=== PATIENT | male | born 1950 | race Caucasian/White ===

== ENCOUNTER → 2017-07-09 | Outpatient (CLI) | payer OTHER | END | disposition home or self-care (01) | LOC: C.PATHSPEC 17:04 | PROVIDERS: ATTEND Nurse Practitioner Family | DX: N30.21 Other chronic cystitis with hematuria (principal) ==

== ENCOUNTER → 2018-03-06 | Outpatient (CLI) | payer OTHER | END | disposition home or self-care (01) | LOC: C.PATHSPEC 16:54 | PROVIDERS: ATTEND Urology | DX: R31.0 Gross hematuria (principal) ==

== ENCOUNTER 2021-06-07 05:42 | Observation (INO) ==
--- NOTE | 2021-05-31 16:25 | PAT Medication Instructions ---
Medication Instructions Date of Service May 31, 2021 Home Medications albuterol sulfate 90 mcg/actuation aerosol inhaler 2 puffs INH Q6H PRN aspirin 81 mg tablet 81 mg PO QAM atorvastatin 20 mg tablet 20 mg PO HS dutasteride 0.5 mg capsule 0.5 mg PO QAM 0 glipizide 2.5 mg tablet, extended release 24 hr 2.5 mg PO QAM metformin 500 mg tablet 500 mg PO QAM sitagliptin 100 mg tablet 100 mg PO QAM tamsulosin 0.4 mg capsule 0.4 mg PO QAM cyanocobalamin (vitamin B-12) 1,000 mcg PO QAM folic acid 1 mg PO QAM ropinirole 0.5 mg PO HS trazodone 150 mg PO HS sildenafil [Viagra] 50 mg PO DAILY PRN ferrous sulfate 325 mg (65 mg iron) tablet,delayed release 325 mg PO DAILY ASK your prescriber and surgeon aspirin 81 mg tablet 81 mg PO QAM STOP taking 24 hours before surgery sildenafil [Viagra] 50 mg PO DAILY PRN DO NOT take the morning of surgery glipizide 2.5 mg tablet, extended release 24 hr 2.5 mg PO QAM metformin 500 mg tablet 500 mg PO QAM sitagliptin 100 mg tablet 100 mg PO QAM cyanocobalamin (vitamin B-12) 1,000 mcg PO QAM folic acid 1 mg PO QAM ferrous sulfate 325 mg (65 mg iron) tablet,delayed release 325 mg PO DAILY Take morning of surgery With a small sip of water, OTHERWISE NOTHING TO EAT OR DRINK AFTER MIDNIGHT: albuterol sulfate 90 mcg/actuation aerosol inhaler 2 puffs INH Q6H PRN (use if needed; please bring with you to hospital day of surgery if possible) dutasteride 0.5 mg capsule 0.5 mg PO QAM tamsulosin 0.4 mg capsule 0.4 mg PO QAM Take evening before surgery albuterol sulfate 90 mcg/actuation aerosol inhaler 2 puffs INH Q6H PRN (if needed) atorvastatin 20 mg tablet 20 mg PO HS ropinirole 0.5 mg PO HS trazodone 150 mg PO HS Other Notes If you have any questions please call us at [phone] or [phone] or [phone] or [phone]
--- NOTE | 2021-06-02 09:45 | Anesthesiology Consultation ---
Date of Service June 02, 2021 Assessment & Plan (1) Encounter for pre-operative examination: Chart Review Chart Review: Acceptable Risk for Surgery (pending preop Covid testing results ) and Patient seen in Pre Admission Testing - Check BSG AM DOS Per [facility] appt on 06/02/21, patient denies any recent travel. No known Covid positive contacts or Covid related symptoms. No known Covid infection in the past 90 days. Preop Covid testing done at [facility] appt 06/02/21= results pending. Educated on importance of self quarantining, social distancing and wearing mask in public both for the patient after Covid testing done. Pt is NOT vaccinated for Covid. Recently admitted [facility] (discharged 05/31/21 per patient) = secondary UTI - treated with abxs. Feeling better. Pt denies sepsis. Teaching & Discussion Pre-Anesthesia Teaching/Discussion Notes: Instructed NPO after midnight before surgery,except medications with 15 cc of water. Medication instructions provided according to the [facility] guidelines. History Surgery Operation Date: 06/07/21 11:10 Proposed Procedures p Transurethral Resection Prostate - Héctor Ludwig MD Height/Weight Height: 5 ft 7.5 in Weight: 74.3 kg Allergies Allergy/AdvReac Type Severity Reaction Status Date / Time lisinopril Allergy Unknown pt does Verified 05/20/21 10:27 not know reaction Tetanus Vaccines and Toxoid Allergy Unknown unsure of Verified 05/20/21 10:27 reaction Medications Home Medications Medication Instructions Recorded Confirmed Last Taken albuterol sulfate 90 mcg/actuation 2 puffs INH Q6H PRN 04/14/20 05/20/21 03/01/21 aerosol inhaler aspirin 81 mg tablet 81 mg PO QAM 04/14/20 05/20/21 02/24/21 atorvastatin 20 mg tablet 20 mg PO HS 04/14/20 05/20/21 03/02/21 22:00 dutasteride 0.5 mg capsule 0.5 mg PO QAM 04/14/20 05/20/21 03/02/21 08:00 glipizide 2.5 mg tablet, extended 2.5 mg PO QAM 04/14/20 05/20/21 03/02/21 08:00 release 24 hr metformin 500 mg tablet 500 mg PO QAM 04/14/20 05/20/21 03/02/21 08:00 sitagliptin 100 mg tablet 100 mg PO QAM 04/14/20 05/20/21 03/02/21 08:00 tamsulosin 0.4 mg capsule 0.4 mg PO QAM 04/14/20 05/20/21 03/02/21 08:00 cyanocobalamin (vitamin B-12) 1,000 mcg PO QAM 02/18/21 05/20/21 03/02/21 08:00 folic acid 1 mg PO QAM 02/18/21 05/20/21 03/02/21 08:00 ropinirole 0.5 mg PO HS 02/18/21 05/20/21 03/02/21 22:00 trazodone 150 mg PO HS 02/18/21 05/20/21 03/02/21 22:00 sildenafil [Viagra] 50 mg PO DAILY PRN 03/03/21 03/23/21 Unknown ferrous sulfate 325 mg (65 mg 325 mg PO DAILY 03/23/21 05/20/21 Unknown iron) tablet,delayed release amlodipine [Norvasc] 10 mg PO DAILY 06/02/21 06/02/21 Unknown cefdinir See Rx Instructions .ROUTE .COMPLEX 06/02/21 06/02/21 Unknown lisinopril 5 mg PO DAILY 06/02/21 06/02/21 Unknown pantoprazole 40 mg PO DAILY 06/02/21 06/02/21 Unknown Past Medical History Medical History (Updated 06/02/21 @ 17:27 by Rocio James PA-C) Anemia S/p 4 iron transfusions in the past few months Arthritis Asthma LAST USED INHALER>LAST WEEK BREATHING STABLE BPH (benign prostatic hyperplasia) Diabetes mellitus, type 2 GLUCOSE STABLE Palmer catheter in place History of depression Hyperlipidemia Hypertension Insomnia Restless leg syndrome UTI (urinary tract infection) hx Exercise / Class Metabolic Activity III < 4 Walking/Shop/Light housework (no chest pain or SOB with flat surface ambulation ) Past Family History Family History Son Hypertension Other No family history of adverse response to anesthesia Past Surgical History Surgical History H/O hemorrhoidectomy History of colonoscopy History of tooth extraction Past Anesthesia History No Hx of Anesthesia Complications and No Family Hx of Anesthesia Complications History of PONV No Hx of PONV and No Hx of Motion Sickness Social History Smoking Status: Current every day smoker tobacco type: cigarettes Smoking cigarettes per day: 1ppd Do You Dip or Chew Tobacco: No Hx Alcohol Use: No Hx Substance Use: No substance use type: does not use Review of Systems Occ cough- chronic/stable. Mild Patient denies chest pain, shortness of breath, reflux, wheezing, palpitations. No hx of seizures, stroke, [place], apnea/snoring. No hx of blood clots or blood transfusions Physical Exam Vital Signs VITALS BP 145/55 P 69 TEMP 98.2 SP02 97% RESP 16 Constitutional no acute distress ENMT Mouth: no TMJ clicking Thyromental Distance: > or= 3.5 Finger Breadths (3.5) Mallampati Class: II All top teeth missing Bottom side and molars missing Neck + limited neck extension (mild ) Respiratory normal respiratory effort; no respiratory distress Auscultation: lungs clear to auscultation bilaterally and + diminished lung sounds; no wheezes Cardiovascular Rate/Rhythm: regular rate and regular rhythm Heart Sounds: no murmur Vessels: no carotid bruit Musculoskeletal Spine: no pain with cervical ROM Extremities: extremities normal to inspection Psychiatric Orientation: alert Lab Results Anesthesia Preop Results Results Anesthesia Widget: Na 139 mmol/L (136-145) 06/02/21 K 4.8 mmol/L (3.5-5.1) 06/02/21 Cl 107 mmol/L (98-107) 06/02/21 CO2 30 mmol/L (21-32) 06/02/21 BUN 14 mg/dl (7-18) 06/02/21 Creat 1.21 mg/dl (0.6-1.4) 06/02/21 Glucose Level 105 mg/dl (70-99) H 06/02/21 HA1c 6.2 % (4.5-5.6) H 06/02/21 Urine Color Yellow 06/02/21 Urine Appearance Clear (Clear) 06/02/21 Urine pH 6.5 (4.5-7.5) 06/02/21 Urine Specific Steele 1.011 (1.000-1.030) 06/02/21 Urine Protein Negative (Negative) 06/02/21 Urine Glucose (UA) Negative (Negative) 06/02/21 Urine Ketones Negative (Negative) 06/02/21 Urine Blood Negative (Negative) 06/02/21 Urine Nitrite Negative (Negative) 06/02/21 Urine Bilirubin Negative (Negative) 06/02/21 Urine Urobilinogen Negative (Negative) 06/02/21 Urine Leukocyte Esterase Trace (Negative) H 06/02/21 Urine WBC (Auto) 5-10 /hpf (0-5) H 06/02/21 Urine RBC (Auto) 5-10 /hpf (0-4) H 06/02/21 Urine Hyaline Casts (Auto) 1-5 /lpf (0-5) 06/02/21 Urine Epithelial Cells (Auto) 10-20 /lpf (0-5) H 06/02/21 Urine Bacteria (Auto) Negative (Negative) 06/02/21 Testing Laboratory Results 05/28/21= WBC: 8.0 H/H: 11.5/36.2 (chronic anemia per patient) PLATELETS: 284 Electrocardiogram Date: 02/24/21 Findings: + NSR @ (67bpm) Minimal voltage criteria for LVH, may be normal variant. Chest X-Ray Date: 06/02/21 FINDINGS: Cardiomediastinal and hilar silhouettes are unchanged. Mild blunting of the costophrenic angles. Interstitial coarsening without pneumothorax, large pleural effusion or overt pulmonary edema. 11 mm nodule left upper lung density is unchanged. Ill-defined 3.6 cm right suprahilar opacity appears slightly less conspicuous than prior. Mild hyperinflation. Degenerative changes of the shoulders and spine. IMPRESSION: 1. Mild hyperinflation without acute process. 2. 11 mm left upper lung and 3.6 cm right upper lung opacities redemonstrated. Again, findings should be correlated with prior imaging to determine chronicity. A nonemergent follow-up chest CT could also be considered. (Will send CXR to PCP as FYI to follow up on outpatient basis)
[2021-06-07] MEDS ORDERED: CIPROFLOXACIN / D5W 400 MG/200 ML BAG IV SCH (06:00)
[2021-06-07] MEDS ORDERED: LR 15ML/HR IV SCH (06:00)
[2021-06-07] MEDS ORDERED: ONDANSETRON INJ 2 MG/ML 2 ML VIAL IV PRN (07:11)
[2021-06-07] MEDS ORDERED: fentaNYL citrate 100 MCG/2 ML VIAL ONE (07:11)
[2021-06-07] MEDS ORDERED: LIDOCAINE 2% 2 ML VIAL/AMP(20MG/ML) INFIL ONE (07:11)
[2021-06-07] MEDS ORDERED: ONDANSETRON INJ 2 MG/ML 2 ML VIAL ONE (07:11)
[2021-06-07] MEDS ORDERED: fentaNYL citrate 100 MCG/2 ML VIAL IV PRN (07:11)
[2021-06-07] MEDS ORDERED: ATROPINE SULFATE 0.1 MG/ML 10ML SYR IV PRN (07:11)
[2021-06-07] MEDS ORDERED: MIDAZOLAM HCL 1 MG/ML 2ML VIAL ONE (07:11)
[2021-06-07] MEDS ORDERED: PROPOFOL IV EMULSION 10 MG/ML 20 ML VIAL IV ONE (07:11)
--- NOTE | 2021-06-07 07:16 | History & Physical Bridge Note ---
Date of Service June 07, 2021 History & Physical Bridge Note I have examined the patient, reviewed the History & Physical and in the interval since the performance of the History & Physical I have noted the following changes of clinical significance: no changes noted
[2021-06-07] MEDS ORDERED: ALBUTEROL HFA 8 GM INHALER INH PRN (09:37)
[2021-06-07] MEDS ORDERED: ACETAMINOPHEN 325 MG TAB PO PRN (09:37)
[2021-06-07] MEDS ORDERED: traMADol HCL 50 MG TABLET PO PRN ×2 (09:37)
--- NOTE | 2021-06-07 09:44 | Operative Report ---
PG Post Operative Report Pre & Post Diagnosis Operation Date: 06/07/21 07:30 Pre-Op Diagnosis: BPH with Urinary OBS/LUTS Urinary Retention Post-Op Diagnosis: BPH with Urinary OBS/LUTS Urinary Retention I identified the patient and participated in the time-out.: Yes Procedure Operation Date: 06/07/21 07:30 Actual Procedures p Transurethral Resection Prostate(Not Applicable) - Héctor Ludwig MD Surgeon Guido Ludwig MD Dehydrator Operator none Estimated Blood Loss 5 Findings Consistent with Post-Op Diagnosis Specimens Prostate chips Description of Procedure The patient was identified in the preoperative holding area, appropriate informed consents were reviewed and completed and the patient was transferred to the operative suite. Upon arrival, appropriate antibiotics and anesthesia were administered and the patient was placed in dorsal lithotomy position and prepped and draped in sterile fashion. Begin the case to pass a 27 Turkmen resectoscope with 30 degree lens. Inspection revealed a healthy-appearing urethra and enlarged prostate with predominantly lateral lobe hypertrophy but some intravesical intrusion. Inspection of the bladder revealed a heavily trabeculated bladder of minimal capacity. Following my inspection I exchanged the visual obturator for a loop electrode and began by resecting the intravesical portion of the prostate followed by the left lateral wall and the right lateral wall. I concluded my resection by trimming the apical tissues. I irrigated a substantial amount of prostate tissue out of the bladder and passed off the table as a specimen. I obtained meticulous hemostasis utilizing a button electrode and then left the bladder full and withdrew the scope. I placed a 22 Turkmen Palmer catheter without difficulty and the case was concluded. He was extubated and taken to the PACU in stable condition. There were no complications. I attest to the content of the Intraoperative Record and any orders documented therein. Any exceptions are noted below.
--- NOTE | 2021-06-07 09:57 | Anesthesiology Progress Note ---
Date of Service June 07, 2021 Anesthesia Post Procedure Vital Signs Vital Signs: Temp Pulse Pulse Resp BP BP Pulse Ox 06/07/21 09:37 36.3 C L 54 L 16 116/70 06/07/21 09:25 36.8 C 56 L 17 120/56 L 92 06/07/21 09:15 52 L 12 112/56 L 97 06/07/21 09:05 58 L 14 120/56 L 96 06/07/21 08:55 57 L 17 135/59 L 99 06/07/21 08:47 36.9 C 67 17 143/65 H 98 06/07/21 06:06 36.4 C L 67 20 168/67 H 94 Transfer of Care Handoff Completed per policy Notes Mental Status: alert / awake / arousable Patient Amnestic to Procedure: Yes Nausea / Vomiting: adequately controlled Pain: adequately controlled Airway Patency, RR, SpO2: stable & adequate BP & HR: stable & adequate Hydration State: stable & adequate Anesthetic Complications: no major complications apparent
[2021-06-07] MEDS ORDERED: PHARMACY GLYCEMIC MGMT CONSULT PRN (09:58)
[2021-06-07] MEDS ORDERED: GLUCOSE 40% GEL 15 GM TUBE PO PRN (10:00)
[2021-06-07] MEDS ORDERED: GLUCOSE 10 TABS/TUBE PO PRN (10:00)
[2021-06-07] MEDS ORDERED: DEXTROSE 50% 50 ML SYRINGE IV PRN (10:00)
[2021-06-07] MEDS ORDERED: CARBOHYDRATES FOR HYPOGLYCEMIA PO PRN (10:00)
[2021-06-07] MEDS ORDERED: GLUCAGON FOR INJ 1 MG VIAL IM PRN (10:00)
--- NOTE | 2021-06-07 10:04 | Pharmacy Report ---
Pharmacy Glycemic Short Note 2 - Date of Service June 07, 2021 - Glycemic Short BSG Results (Last 24 hours): 06/07/21 06/07/21 06:02 08:50 POC Glucose 110 H 137 H OUTPATIENT ANTIDIABETIC REGIMEN: * Metformin 500 mg PO daily * Glipizide 2.5 mg PO daily * Januvia 100 mg PO daily * HbA1c: 6.2% (06/02/21) ASSESSMENT: * ET is a 70 year old male POD #0 s/p TURP * No perioperative steroids administered * Patient has very well-controlled T2DM with oral medications only * Likely restart oral meds tomorrow morning * BSG elevated at lunchtime (215 mg/dL), but patient ate breakfast just 2 hours prior to that so may be falsely elevated PLAN FOR INPATIENT GLYCEMIC CONTROL: * Hold outpatient oral diabetes medications * Likely restart tomorrow morning * Basal insulin * Lantus scale with dinner to provide 0-15 units based on BSG (see EHR for details) * Bolus insulin * NovoLog per scale ACHS or Q6hrs while NPO * Goal Range: Low 110 mg/dL - High 140 mg/dL * Correction Factor: 25 mg/dL/unit * Nutritional / Prandial insulin per carb ratio of 1 unit per 8 grams CHO consumed PLAN FOR DISCHARGE: * HbA1c of 6.2% suggests excellent outpatient glycemic control * Provided that patient is not experiencing hypoglycemia as an outpatient, suggest continuing current home regimen at discharge
[2021-06-07] MEDS: LACTATED RINGER'S 1,000 ML IV SCH ×2 (10:35→23:24)
[2021-06-07] MEDS: INSULIN ASPART 100 UNITS/ML 3 ML PEN SC SCH ×4 (10:41→21:02)
[2021-06-07] MEDS: lisinopril 5 MG TAB PO SCH (11:30)
[2021-06-07] MEDS: amLODIPine BESYLATE 5 MG TAB PO SCH (11:30)
[2021-06-07] MEDS: PANTOprazole 40 MG TAB PO SCH (11:31)
[2021-06-07] MEDS ORDERED: LANTUS PER UNIT CHARGE SQ SCH (17:00)
[2021-06-07] MEDS ORDERED: rOPINIRole HCL 0.25 MG TABLET PO SCH (21:00)
[2021-06-07] MEDS ORDERED: CEFDINIR 300 MG CAP PO SCH (21:00)
[2021-06-07] MEDS ORDERED: ATORVASTATIN 20 MG TAB PO SCH (21:00)
[2021-06-07] MEDS ORDERED: traZODone HCL 50 MG TAB PO SCH (21:00)
[2021-06-08] MEDS ORDERED: INSULIN ASPART 100 UNITS/ML 3 ML PEN SC SCH
[2021-06-08] MEDS ORDERED: LR 15ML/HR IV SCH (06:00)
[2021-06-08] MEDS: PANTOprazole 40 MG TAB PO SCH (07:29)
[2021-06-08] MEDS: lisinopril 5 MG TAB PO SCH (07:29)
[2021-06-08] MEDS: amLODIPine BESYLATE 5 MG TAB PO SCH (07:30)
--- NOTE | 2021-06-08 08:20 | Urology Progress Note ---
Date of Service June 08, 2021 Assessment & Plan (1) BPH w urinary obs/LUTS: POD #1 s/p TURP - plan for voiding trial this AM - dc home later today (2) Gross hematuria: Admission and Anticipated Discharge Date Admission Date: June 07, 2021 Subjective no issues overnight catheter draining well no pain Physical Exam Physical Exam: urine clear Constitutional: well developed and well nourished Respiratory: no respiratory distress Cardiovascular: Extremities: no pedal edema Gastrointestinal (Abdomen): Inspection/Auscultation: abdomen normal to inspection Results & Data ([facility]) Vital Signs (Past 12 Hours) Vital Signs Temp Pulse Resp BP Pulse Ox 06/08/21 06:10 36.7 C 65 14 116/62 93 06/07/21 22:41 36.9 C 61 18 130/64 97 PG Care Time/CCT Total # of Minutes Spent Total Time Spent with Patient: Total time spent is greater than 50% in coordination of care (as documented) at patient's floor/unit and/or counseling patient: Coding Level of Care Code 86322 Subseq Hosp Care Lvl 2 Diagnoses BPH w urinary obs/LUTS N40.1; N13.8 Gross hematuria R31.0
[2021-06-08] MEDS ORDERED: CYANOCOBALAMIN 500 MCG TABLET (VITAMIN B-12) PO SCH (09:00)
[2021-06-08] MEDS: INSULIN ASPART 100 UNITS/ML 3 ML PEN SC SCH ×2 (09:12→12:47)
--- NOTE | 2021-06-09 07:31 | Discharge Summary ---
Date of Service June 09, 2021 Admission HPI Per Admitting Provider urinary retention secondary to BPH Principal Diagnosis BPH with urinary retention Discharge Data Allergies Allergy/AdvReac Type Severity Reaction Status Date / Time lisinopril Allergy Unknown pt does Verified 06/07/21 05:53 not know reaction Tetanus Vaccines and Toxoid Allergy Unknown unsure of Verified 06/07/21 05:53 reaction Procedures Performed Operation Date: 06/07/21 07:30 Actual Procedures p Transurethral Resection Prostate(Not Applicable) - Héctor Ludwig MD Hospital Course (1) BPH w urinary obs/LUTS: Admitted for TURP - tolerated procedure very well - progressed appropriately overnight - passed a voiding trial on the morning of POD#1 - d/c home in stable condition Total Time Total Time Spent Total Time Spent (In Minutes): 15 Discharge Plan Discharge Items Patient Disposition: Home - Self-Care Reason For Visit: BPH with Urinary OBS/LUTS Urinary Retention Discharge Diagnosis: BPH with urinary Obs/LUTS urinary retention Activity: Per Instructions section Lifting: No more than 25 pounds Bathing Comment: Okay to shower, no tub bath or soaking Sexual Activity: Wait until after follow-up appointment Exercise/Sports: Wait until after follow-up appointment Driving/Machine Use: No driving while taking prescription pain medication Non-emergency contact: Surgeon and Urologist Call non-emergency contact if: your symptoms worsen, your pain is worsening, you have a fever and your temperature is above 101 Follow-up/Referrals: Nichole Juarez MD [Primary Care Provider] - 06/15/21 9:40 am Liz Mccullough CRNP [Nurse Practitioner] - 06/21/21 10:00 am Diet: Regular Addtl Attending Provider Instructions: Please take all medications as prescribed and keep all follow-ups as scheduled. Please call our office at [phone] with any questions, concerns or need to reschedule appointments for any reason. We are happy to assist you. Tips for your recovery at home: Dont be alarmed by brownish or reddish blood or clots in your urine. This is a result of the procedure. This may occur off and on for weeks to months after the procedure but should continue to improve. Drink plenty of fluids during the day (enough to keep your urine very light colored). This will help keep a healthy flow of urine. Do not lift >25 lbs until your followup Avoid constipation. Please use a stool softener (Colace) for the first two weeks after your procedure Be sure to finish the antibiotics as prescribed. If you go home with a catheter, please wash tubing where it enters your body twice daily with mild soap (Dove or Dial). Once your catheter is removed, expect some blood in your urine and some burning when you urinate. You should have an appointment to have this removed, if you do not please call our office to arrange. Pending Studies at Discharge: Yes Studies:: pathology Stand-Alone Forms: My [facility] Showcase Gig, Smoking Cessation Medications and DC Order Prescriptions: New docusate sodium [Colace] 100 mg capsule 100 mg PO BID Qty: 60 RF: 0 Continued metformin 500 mg tablet 500 mg PO QAM RF: 0 glipizide 2.5 mg tablet extended release 24hr 2.5 mg PO QAM RF: 0 atorvastatin [Lipitor] 20 mg tablet 20 mg PO HS RF: 0 tamsulosin 0.4 mg capsule 0.4 mg PO QAM RF: 0 aspirin 81 mg tablet 81 mg PO QAM RF: 0 Januvia 100 mg tablet 100 mg PO QAM RF: 0 albuterol sulfate [Ventolin HFA] 90 mcg/actuation HFA aerosol inhaler 2 puffs INH Q6H PRN (Reason: SHORT OF BREATH) RF: 0 ferrous sulfate 325 mg (65 mg iron) tablet,delayed release (DR/EC) 325 mg PO DAILY RF: 0 trazodone 150 mg Tablet 150 mg PO HS RF: 0 ropinirole 0.5 mg Tablet 0.5 mg PO HS RF: 0 folic acid 1 mg Tablet 1 mg PO QAM RF: 0 cyanocobalamin (vitamin B-12) 1,000 mcg Capsule 1,000 mcg PO QAM RF: 0 sildenafil [Viagra] 50 mg tablet 50 mg PO DAILY PRN (Reason: sexual activity) RF: 0 amlodipine [Norvasc] 10 mg Tablet 10 mg PO DAILY RF: 0 pantoprazole 40 mg Tablet,Delayed Release (Dr/Ec) 40 mg PO DAILY RF: 0 lisinopril 5 mg Tablet 5 mg PO DAILY RF: 0 cefdinir 300 mg Capsule See Rx Instructions .ROUTE .COMPLEX RF: 0 Discontinued dutasteride [Avodart] 0.5 mg capsule 0.5 mg PO QAM RF: 0 Discharge Orders: Discharge Order (Routine); Ordered 06/08/21 Ordered By: Suad Kaur Admission Data Admit Date/Time: 06/07/21 08:59 Attending Provider: Héctor Ludwig Admit Provider: Héctor Ludwig Primary Care Provider: Nichole Juarez Other Interventions: Discharge Summary Assessment (RN) Last Done: 06/08/21 13:47 Coding Level of Care Code D/C DAY MANAGEMENT <30 MINS Diagnoses BPH w urinary obs/LUTS N40.1; N13.8
== END 2021-06-08 14:48 | disposition home or self-care (01) ==
LOC: ASU 05:42 → 3N 05:42